=== PATIENT | female | born 1950 | race Caucasian/White ===

== ENCOUNTER → 2017-08-12 | Outpatient (CLI) | payer MEDICARE | LOC: COL.RAD 12:43 | DX: K86.89 Other specified diseases of pancreas (principal); R63.4 Abnormal weight loss; K59.00 Constipation, unspecified; D72.829 Elevated white blood cell count, unspecified | CPT/HCPCS: Q9967 ==

== ENCOUNTER → 2017-08-19 | Outpatient (CLI) | payer MEDICARE ==
[~2017-08-19] VITALS: Ht 167.6 cm; Wt 47.6 kg
[2017-08-19] VITALS (12 sets, daily range): BP systolic 101–124; BP diastolic 50–76; PULSE 70–88
[~2017-08-19] MED LIST: DULCOLAX S10 MG/SUPP RC; DULCOLAX TAB5 MG PO; EX-LAX25 MG PO; MILK OF MA400 MG/52 PO; ULTRAM 50MG TAB50 MG PO
== END ==
LOC: COL.RAD 12:21
DX: R19.02 Left upper quadrant abdominal swelling, mass and lump (principal); R63.4 Abnormal weight loss; F17.210 Nicotine dependence, cigarettes, uncomplicated

== ENCOUNTER 2017-09-15 06:26 | Day surgery (SDC) | payer MEDICARE ==
[~2017-09-15] VITALS: Ht 167.6 cm; Wt 43.9 kg
[2017-09-15] MEDS ORDERED: NORCO 325 MG-51 TAB PO (06:50)
[2017-09-15 06:51] VITALS: BP 120/42; PULSE 83; TEMP 97.5
[2017-09-15 08:55] VITALS: BP 121/63; PULSE 71
[2017-09-15 09:13] VITALS: BP 121/64; PULSE 69
[2017-09-15 09:28] VITALS: BP 116/60; PULSE 71
== END 2017-09-15 09:40 | disposition home or self-care (01) ==
LOC: SDCO 06:26
DX: C25.2 Malignant neoplasm of tail of pancreas (principal); F17.210 Nicotine dependence, cigarettes, uncomplicated; K21.9 Gastro-esophageal reflux disease without esophagitis; Z85.41 Personal history of malignant neoplasm of cervix uteri
CPT/HCPCS: C1788; J0690; J1644; J2250; J2405; J2704; J3010; J7120

== ENCOUNTER → 2017-11-10 | Outpatient (CLI) | payer MEDICARE ==
[~2017-11-10] MED LIST changes: +NORCO 325 MG-51 TAB PO
== END ==
LOC: COL.VAS 08:43
DX: R22.41 Localized swelling, mass and lump, right lower limb (principal); Z85.07 Personal history of malignant neoplasm of pancreas